=== PATIENT | female | born 1985 | race Caucasian/White ===

== ENCOUNTER 2020-02-17 10:43 | Emergency (ER) | payer BC ==
[~2020-02-17] VITALS: Ht 160 cm; Wt 56.0 kg
[2020-02-17] MEDS ORDERED: RHO(D) immune globulin 1,500 units (300 MCG) syringe IM ONE (11:10)
[2020-02-17] MEDS ORDERED: RHO D IMMUNE GLOBULIN IM ONE (11:30)
[2020-02-17] MEDS ORDERED: RHO(D) IMMUNE GLOBULIN 250 UNIT (50 MCG) DISP.SYRIN IM ONE ×2 (11:30→11:35)
[2020-02-17 11:32] LABS: BASOPHILS % (AUTO) 0.5 % (0-1); EOSINOPHILS # (AUTO) 0.2 X10'3 (0-0.9); EOSINOPHILS % (AUTO) 3.9 % (0-6); HEMATOCRIT 34.5 % (35.0-45.0); HEMOGLOBIN 11.4 g/dl (12.0-16.0); LYMPHOCYTES # (AUTO) 1.2 X10'3 (1.1-4.8); LYMPHOCYTES % (AUTO) 25.1 % (21-51); MEAN CORPUSCULAR HEMOGLOBIN 25.9 PG (27.0-31.0); MEAN CORPUSCULAR HGB CONC 33.1 g/dL (33.0-36.5); MEAN PLATELET VOLUME 8.1 FL (7.4-10.4); MONOCYTES # (AUTO) 0.5 X10'3 (0-0.9); MONOCYTES % (AUTO) 10.4 % (2-12); NEUTROPHILS # (AUTO) 2.8 X10'3 (1.8-7.7); NEUTROPHILS % (AUTO) 60.1 % (42-75); PLATELET COUNT 238 X10'3 (140-440); RED BLOOD COUNT 4.42 X10'6 (4.20-5.60); WHITE BLOOD COUNT 4.6 X10'3 (4.5-11.0)
--- NOTE | 2020-02-17 11:43 | NUR ---
Patient reports being Rh negative
[2020-02-17 11:47] LABS: ALBUMIN 3.6 G/DL (3.4-5.0); ANION GAP 8 (8-16); BETA HCG,QUANTITATIVE 17 mIU/ml; BLOOD UREA NITROGEN 7 MG/DL (7-18); BUN/CREATININE RATIO 8.8 (6.6-38.0); CALCIUM 8.6 MG/DL (8.5-10.1); CHLORIDE 107 MMOL/L (99-107); GLUCOSE 98 MG/DL (70-104); POTASSIUM 3.4 MMOL/L (3.5-5.1); SODIUM 140 MMOL/L (135-145); TOTAL CARBON DIOXIDE 24.8 MMOL/L (24-32); eGFR 83 ML/MIN
[2020-02-17 12:39] VITALS: BP 102/64
== END 2020-02-17 12:41 | disposition home or self-care (01) ==
LOC: ER 10:44
DX: O20.0 Threatened abortion (principal); R10.9 Unspecified abdominal pain; O26.891 Other specified pregnancy related conditions, first trimester; Z3A.01 Less than 8 weeks gestation of pregnancy
CPT/HCPCS: 36415; 80048; 84702; 85025; 96372; 99283